=== PATIENT | male | born 1985 | race Caucasian/White ===

== ENCOUNTER 2017-04-22 15:20 | Emergency (ER) | payer SELFPAY ==
[~2017-04-22] VITALS: Ht 182.9 cm; Wt 79.5 kg
[2017-04-22 15:25] VITALS: BP 123/73; PULSE 69; TEMP 97.6
[2017-04-22] MEDS ORDERED: NORCO 325 MG-51 TAB PO (15:29)
[2017-04-22] MEDS ORDERED: CEPHALEXIN500 M1 PO (15:29)
[2017-04-22] MEDS ORDERED: PHENERGAN 25 TA25 MG PO (16:06)
== END 2017-04-22 16:18 | disposition home or self-care (01) ==
LOC: COL.ER 15:20
DX: S02.609A Fracture of mandible, unspecified, initial encounter for closed fracture (principal); F17.210 Nicotine dependence, cigarettes, uncomplicated; Y04.2XXA Assault by strike against or bumped into by another person, initial encounter